=== PATIENT | female | born 1940 | race Caucasian/White ===

== ENCOUNTER → 2017-02-10 | Outpatient (CLI) | payer MEDICARE, OTHER ==
--- NOTE | 2017-02-10 17:58 | WOMENS IMAGING REPORT ---
EXAM DESCRIPTION: 3D SCREENING MAMMO BILAT COMPLETED DATE/TIME: 02/10/2017 2:20 pm REASON FOR STUDY: ROUTINE SCREENING; Z12.31 Z12.31 ENCNTR SCREEN MAMMOGRAM FOR MALIGNANT NEOPLASM O F AAMIR COMPARISON: Multiple since 2009 TECHNIQUE: Standard craniocaudal and mediolateral oblique views of each breast recorded using digita l acquisition and breast tomosynthesis. LIMITATIONS: None. FINDINGS: RIGHT BREAST MASSES: No suspicious masses. CALCIFICATIONS: No new or suspicious calcifications. ARCHITECTURAL DISTORTION: None. DEVELOPING DENSITY: None. ASYMMETRY: None noted. OTHER: No other significant findings. LEFT BREAST MASSES: Question small subcentimeter nodule with associated microcalcifications left breast upper out er quadrant 5 cm from the nipple, for which cone compression views, left breast 90 mediolateral view , and ultrasound is recommended for followup. CALCIFICATIONS: Nodule with microcalcifications as above ARCHITECTURAL DISTORTION: None. DEVELOPING DENSITY: None. ASYMMETRY: None noted. OTHER: No other significant findings. Read with the assistance of CAD. .[facility] - R2 Cenova Version 1.3 .[facility] Imaging - R2 Cenova Version 1.3 .[facility] Imaging - R2 Cenova Version 2.4 .[facility] [place] - R2 Cenova Version 2.4 .[facility] - R2 Wafer Fab Technician Version 9.2 IMPRESSION: No mammographic evidence for malignancy right breast. Question nodule with microcalcifications, upper-outer quadrant 5 cm from the nipple for which additio nal left breast diagnostic mammograms and ultrasound recommended. BREAST DENSITY: b. There are scattered areas of fibroglandular density. BIRAD: 0 Incomplete: Needs Additional Imaging Evaluation and/or prior Mammograms for Comparison. RECOMMENDATION: RECOMMENDED FOLLOW-UP: Additional left breast diagnostic mammograms and ultrasound The patient will be contacted for additional imaging. COMMENT: The patient has been notified of the results by letter per SA requirements. Additional no tification policies are in place for contacting patient with suspicious or incomplete findings. Quality ID #[id number]: The [employer] recommends an annual screening mammogram for women aged 40 years or over. This facility utilizes a reminder system to ensure that all patients receive reminder letters, and/or direct phone calls for appointments. This includes reminders for routine scr eening mammograms, diagnostic mammograms, or other Breast Imaging Interventions when appropriate. Th is patient will be placed in the appropriate reminder system. The [employer] (ACR) has developed recommendations for screening MRI of the breast s in certain patient populations, to be used in conjunction with mammography. Breast MRI surveillanc e may be appropriate for women with more than 20% lifetime risk of developing breast cancer as deter mined by genetic testing, significant family history of the disease, or history of mantle radiation f or Hodgkins Disease. ACR Practice Guidelines 2008. DBT Technology DBT is a type of tomographic mammography. With conventional mammography, overlapping breast tissue ma y make lesions difficult to detect, even with good compression. DBT uses an x-ray tube that rotates a round the breast, taking images at different angles. These images are then combined to create thin sl ices of the breast that the radiologist can view as a 3D reconstruction. The [employer] unit can perform full-field digital mammograms (2D imaging); or DBT (3D imaging); or both, in a combination mode that quickly performs both the mammogram and the tomosynthesis scan while the breast is still compressed. PQRS 6045F: Fluoroscopic imaging is not utilized for breast tomosynthesis. TECHNICAL DOCUMENTATION: FINDING NUMBER: (1) ASSESSMENT: (1) JOB ID: [id number] [employer]- All Rights Reserved
== END ==
LOC: WI 13:59
PROVIDERS: ATTEND Internal Medicine
DX: Z12.31 Encounter for screening mammogram for malignant neoplasm of breast (principal); R92.8 Other abnormal and inconclusive findings on diagnostic imaging of breast
CPT/HCPCS: 77063; G0202; 76642; 77067

== ENCOUNTER → 2017-03-03 | Outpatient (CLI) | payer MEDICARE, OTHER ==
--- NOTE | 2017-03-03 16:08 | WOMENS IMAGING REPORT ---
EXAM DESCRIPTION: LEFT DIAGNOSTIC MAMMO W/CAD; U/S BREAST UNILAT LIMITED COMPLETED DATE/TIME: 03/03/2017 1:10 pm; 03/03/2017 2:07 pm REASON FOR STUDY: N63, BREAST LUMP; LEFT BREAST NODULE N63 UNSPECIFIED LUMP IN BREAST; Z12.31 ENCN TR SCREEN MAMMOGRAM FOR MALIGNANT NEOPLASM OF AAMIR R92.8 OTH ABN AND INCONCLUSIVE FINDINGS ON DX IMAG ING OF AAMIR COMPARISON: 02/10/2017, 03/02/2016, and 01/17/2015. TECHNIQUE: Additional images include a true lateral view and compression magnification MLO and CC vi ews. LIMITATIONS: None. FINDINGS: BREAST: left MASSES: No suspicious masses. CALCIFICATIONS: A few coarse calcifications in the upper-outer breast with no suspicious pleomorphic characteristics. Associated with vague density with no discrete mass on additional views. ARCHITECTURAL DISTORTION: None. DEVELOPING DENSITY: None. ASYMMETRY: None noted. OTHER: No other significant findings. BREAST ULTRASOUND: TECHNIQUE: Static and dynamic grayscale images acquired of the left breast in the specific areas of c linical/mammographic concern. Selected color Doppler images recorded. ELASTOGRAPHY PERFORMED: No. LIMITATIONS: None. FINDINGS: MASS: In the 1 o'clock location there is an oval hypoechoic mass measuring 3 x 7 x 8 mm. This is wel l-circumscribed and may consistent of tiny cysts. There are a few central calcifications. No distal shadowing. ELASTOGRAPHY CHARACTERISTICS: Not applicable. OTHER: No other significant finding. IMPRESSION: Calcifications in the upper-outer breast with no suspicious pleomorphic appearance. Sma ll nodule on ultrasound which may be composed of tiny cysts. No worrisome characteristics. BREAST DENSITY: b. There are scattered areas of fibroglandular density. BIRAD: 2 Benign findings. RECOMMENDATION: RECOMMENDED FOLLOW UP: Birads 1 or 2: The patient should resume routine screening . SPECIFIC INTERVENTION/IMAGING/CONSULTATION RECOMMENDED:No additional intervention/ imaging/consultati on needed at this time. COMMUNICATION:The imaging findings were not discussed with the patient. Her referring provider will b e notified of the findings. COMMENT: The patient has been notified of the results by letter per MQSA requirements. Additional no tification policies are in place for contacting patient with suspicious or incomplete findings. Quality ID #[id number]: The [employer] recommends an annual screening mammogram for women aged 40 years or over. This facility utilizes a reminder system to ensure that all patients receive reminder letters, and/or direct phone calls for appointments. This includes reminders for routine scr eening mammograms, diagnostic mammograms, or other Breast Imaging Interventions when appropriate. Th is patient will be placed in the appropriate reminder system. The [employer] (ACR) has developed recommendations for screening MRI of the breast s in certain patient populations, to be used in conjunction with mammography. Breast MRI surveillanc e may be appropriate for women with more than 20% lifetime risk of developing breast cancer as deter mined by genetic testing, significant family history of the disease, or history of mantle radiation f or Hodgkins Disease. ACR Practice Guidelines 2008. TECHNICAL DOCUMENTATION: FINDING NUMBER: (1) ASSESSMENT: (1) JOB ID: [id number] [employer]- All Rights Reserved
--- NOTE | 2017-03-03 16:08 | WOMENS IMAGING REPORT ---
EXAM DESCRIPTION: LEFT DIAGNOSTIC MAMMO W/CAD; U/S BREAST UNILAT LIMITED COMPLETED DATE/TIME: 03/03/2017 1:10 pm; 03/03/2017 2:07 pm REASON FOR STUDY: N63, BREAST LUMP; LEFT BREAST NODULE N63 UNSPECIFIED LUMP IN BREAST; Z12.31 ENCNTR SCREEN MAMMOGRAM FOR MALIGNANT NEOPLASM OF AAMIR R92.8 OTH ABN AND INCONCLUSIVE FINDINGS ON DX IMAGING OF AAMIR COMPARISON: 02/10/2017, 03/02/2016, and 01/17/2015. TECHNIQUE: Additional images include a true lateral view and compression magnification MLO and CC views. LIMITATIONS: None. FINDINGS: BREAST: left MASSES: No suspicious masses. CALCIFICATIONS: A few coarse calcifications in the upper-outer breast with no suspicious pleomorphic characteristics. Associated with vague density with no discrete mass on additional views. ARCHITECTURAL DISTORTION: None. DEVELOPING DENSITY: None. ASYMMETRY: None noted. OTHER: No other significant findings. BREAST ULTRASOUND: TECHNIQUE: Static and dynamic grayscale images acquired of the left breast in the specific areas of clinical/mammographic concern. Selected color Doppler images recorded. ELASTOGRAPHY PERFORMED: No. LIMITATIONS: None. FINDINGS: MASS: In the 1 o'clock location there is an oval hypoechoic mass measuring 3 x 7 x 8 mm. This is well-circumscribed and may consistent of tiny cysts. There are a few central calcifications. No distal shadowing. ELASTOGRAPHY CHARACTERISTICS: Not applicable. OTHER: No other significant finding. IMPRESSION: Calcifications in the upper-outer breast with no suspicious pleomorphic appearance. Small nodule on ultrasound which may be composed of tiny cysts. No worrisome characteristics. BREAST DENSITY: b. There are scattered areas of fibroglandular density. BIRAD: 2 Benign findings. RECOMMENDATION: RECOMMENDED FOLLOW UP: Birads 1 or 2: The patient should resume routine screening . SPECIFIC INTERVENTION/IMAGING/CONSULTATION RECOMMENDED:No additional intervention/ imaging/consultation needed at this time. COMMUNICATION:The imaging findings were not discussed with the patient. Her referring provider will be notified of the findings. COMMENT: The patient has been notified of the results by letter per MQSA requirements. Additional notification policies are in place for contacting patient with suspicious or incomplete findings. Quality ID #[id number]: The [employer] recommends an annual screening mammogram for women aged 40 years or over. This facility utilizes a reminder system to ensure that all patients receive reminder letters, and/or direct phone calls for appointments. This includes reminders for routine screening mammograms, diagnostic mammograms, or other Breast Imaging Interventions when appropriate. This patient will be placed in the appropriate reminder system. The [employer] (ACR) has developed recommendations for screening MRI of the breasts in certain patient populations, to be used in conjunction with mammography. Breast MRI surveillance may be appropriate for women with more than 20% lifetime risk of developing breast cancer as determined by genetic testing, significant family history of the disease, or history of mantle radiation for Hodgkins Disease. ACR Practice Guidelines 2008. TECHNICAL DOCUMENTATION: FINDING NUMBER: (1) ASSESSMENT: (1) JOB ID: [id number] [employer]- All Rights Reserved <Electronically signed by MATT LIN MD in [place]> 03/03/17 1608 [email or web address]
== END ==
LOC: WI 12:58
PROVIDERS: ATTEND Internal Medicine
DX: N63 Unspecified lump in breast (principal)
CPT/HCPCS: 76642; G0206-52

== ENCOUNTER → 2017-12-31 | Outpatient (CLI) | payer MEDICARE ==
--- NOTE | 2017-12-31 14:36 | WOMENS IMAGING REPORT ---
EXAM DESCRIPTION: BONE DENSITY HIP/SPINE COMPLETED DATE/TIME: 12/31/2017 2:25 pm REASON FOR STUDY: OSTEOPOROSIS Z13.820 ENCOUNTER FOR SCREENING FOR OSTEOPOROSIS M81.0 AGE-RELATED OSTEOPOROSIS W/O CURRENT PATHOLOGICAL FRAC COMPARISON: None. TECHNIQUE: Dual-Energy X-ray Absorptiometry (DEXA) of the AP Spine and Hip. LIMITATIONS: None. FINDINGS: LUMBAR SPINE: The bone mineral density (BMD) measured from L1-L4 in the AP projection correlates with a T-score of -1.1, which is osteopenia as defined by the World Health Organization. HIP: The bone mineral density (BMD) measured in the left hip correlates with a T-score of -1.5, which is o steopenia as defined by the World Health Organization. IMPRESSION: 1. LUMBAR SPINE: OSTEOPENIA. 2. HIP: OSTEOPENIA. COMMENT: The World Health Organization defines low BMD as follows: T-score: Normal: Greater than -1.0 Osteopenia: Between -1.0 and -2.5 Osteoporosis: Less than -2.5 without fractures Established osteoporosis: Less than -2.5 with fractures In general, you may wish to consider: Diagnosis Treatment Follow-up DEXA Normal BMD Prevention 2-3 years Osteopenia Prevention/Therapy 1-2 years Osteoporosis Therapy Yearly TECHNICAL DOCUMENTATION: JOB ID: [id number] [employer]- All Rights Reserved Reading location - IP/workstation name: [email or web address]
== END ==
LOC: WI 14:07
PROVIDERS: ATTEND Internal Medicine
DX: M81.0 Age-related osteoporosis without current pathological fracture (principal)
CPT/HCPCS: 77080

== ENCOUNTER → 2018-05-31 | Outpatient (CLI) | payer MEDICARE, OTHER ==
--- NOTE | 2018-06-01 15:02 | WOMENS IMAGING REPORT ---
EXAM DESCRIPTION: 3D SCREENING MAMMO BILAT COMPLETED DATE/TIME: 05/31/2018 3:10 pm REASON FOR STUDY: BILATERAL SCREENING MAMMO 3D/Z12.31 Z12.31 ENCNTR SCREEN MAMMOGRAM FOR MALIGNANT NEOPLASM OF AAMIR COMPARISON: 2013 to 2016 TECHNIQUE: Standard craniocaudal and mediolateral oblique views of each breast recorded using digita l acquisition and breast tomosynthesis. LIMITATIONS: None. FINDINGS: No masses, calcifications or architectural distortion. No areas of suspicion. Read with the assistance of CAD. .[facility] - R2 Cenova Version 1.3 .[facility] Imaging - R2 Cenova Version 1.3 .[facility] Imaging - R2 Cenova Version 2.4 .[facility] - R2 Cenova Version 2.4 .[facility] - R2 Vertical Boring Mill Operator Version 9.2 IMPRESSION: NORMAL MAMMOGRAM. BIRADS 1. BREAST DENSITY: b. There are scattered areas of fibroglandular density. BIRAD: 1 NEGATIVE RECOMMENDATION: ROUTINE SCREENING COMMENT: The patient has been notified of the results by letter per SA requirements. Additional no tification policies are in place for contacting patient with suspicious or incomplete findings. Quality ID #[id number]: The [employer] recommends an annual screening mammogram for women aged 40 years or over. This facility utilizes a reminder system to ensure that all patients receive reminder letters, and/or direct phone calls for appointments. This includes reminders for routine scr eening mammograms, diagnostic mammograms, or other Breast Imaging Interventions when appropriate. Th is patient will be placed in the appropriate reminder system. The [employer] (ACR) has developed recommendations for screening MRI of the breast s in certain patient populations, to be used in conjunction with mammography. Breast MRI surveillanc e may be appropriate for women with more than 20% lifetime risk of developing breast cancer as deter mined by genetic testing, significant family history of the disease, or history of mantle radiation f or Hodgkins Disease. ACR Practice Guidelines 2008. DBT Technology DBT is a type of tomographic mammography. With conventional mammography, overlapping breast tissue ma y make lesions difficult to detect, even with good compression. DBT uses an x-ray tube that rotates a round the breast, taking images at different angles. These images are then combined to create thin sl ices of the breast that the radiologist can view as a 3D reconstruction. The [employer] unit can perform full-field digital mammograms (2D imaging); or DBT (3D imaging); or both, in a combination mode that quickly performs both the mammogram and the tomosynthesis scan while the breast is still compressed. PQRS 6045F: Fluoroscopic imaging is not utilized for breast tomosynthesis. TECHNICAL DOCUMENTATION: FINDING NUMBER: (1) ASSESSMENT: (1) JOB ID: [id number] [employer]- All Rights Reserved Reading location - IP/workstation name: [email or web address]
== END ==
LOC: WI 14:42
PROVIDERS: ATTEND Internal Medicine
DX: Z12.31 Encounter for screening mammogram for malignant neoplasm of breast (principal)
CPT/HCPCS: 77063; 77067

== ENCOUNTER 2018-12-01 19:10 | Emergency (ER) | payer MEDICARE, OTHER ==
--- NOTE | 2018-12-01 20:23 | ER Document Report ---
ED Medical Screen (RME) - General Chief Complaint: Cough Stated Complaint: BAD COUGH Time Seen by Provider: 12/01/18 20:17 Primary Care Provider: JAMIE ARITA MD [Primary Care Provider] - Follow up as needed Notes: Patient is a 78-year-old female presents to the emergency department for generalized cough and congestion since Wednesday. Patient states at times she coughs so hard that she makes herself vomit. Patient states she also has generalized bilateral lower rib pain more so when she takes a deep breath or coughs. Patient's denying any fevers. GENERAL: Alert, interacts well. No acute distress. LUNGS: Clear to auscultation bilaterally, no wheezes, rales, or rhonchi. No respiratory distress. HEART: Regular rate and rhythm. No murmur I have greeted and performed a rapid initial assessment of this patient. A comprehensive ED assessment and evaluation of the patient, analysis of test results and completion of the medical decision making process will be conducted by additional ED providers. This medical record was dictated with voice recognizing software. There may be grammatical, syntax errors that are unintended. TRAVEL OUTSIDE OF THE [place] IN LAST 30 DAYS: No - Related Data Allergies/Adverse Reactions: chocolate flavor Allergy (Mild, Verified 06/04/17 20:53) Hives oxycodone [From Percocet] Allergy (Mild, Verified 06/04/17 20:53) Chest pain tomato Allergy (Mild, Verified 06/04/17 20:53) Hives acetaminophen [From Percocet] Allergy (Verified 06/04/17 20:51) pcn Allergy (Mild, Uncoded 06/04/17 13:38) Past Medical History - Past Medical History Cardiac Medical History: Reports: Hx Hypercholesterolemia, Hx Hypertension Endocrine Medical History: Reports: Hx Diabetes Mellitus Type 2 Renal/ Medical History: Denies: Hx Peritoneal Dialysis GI Medical History: Reports: Hx Gastroesophageal Reflux Disease Musculoskeltal Medical History: Reports Hx Gout Past Surgical History: Reports: Hx Cholecystectomy - Immunizations Hx Diphtheria, Pertussis, Tetanus Vaccination: Yes History of Influenza Vaccine for 05/2017 - 10/2017 Season: Refused Physical Exam - Vital signs Vitals: Temp Pulse Resp BP Pulse Ox 97.8 F 76 16 158/67 H 94 12/01/18 19:16 12/01/18 19:16 12/01/18 19:16 12/01/18 19:16 12/01/18 19:16 Course - Vital Signs Vital signs: Temp Pulse Resp BP Pulse Ox 97.8 F 76 16 158/67 H 94 12/01/18 19:16 12/01/18 19:16 12/01/18 19:16 12/01/18 19:16 12/01/18 19:16 Doctor's Discharge - Discharge Referrals: JAMIE ARITA MD [Primary Care Provider] - Follow up as needed
--- NOTE | 2018-12-01 20:53 | RADIOLOGY REPORT (SQ) ---
EXAM DESCRIPTION: XR CHEST 2 VIEWS COMPLETED DATE/TME: 12/01/2018 20:21 CLINICAL HISTORY: 78 years, Female, cough Compared to 06/04/2017. FINDINGS: The heart is mildly enlarged. Aorta is within normal limits. No consolidation or pleural effusion. No pulmonary edema or pneumothorax. IMPRESSION: No acute disease.
[2018-12-01] MEDS ORDERED: BENZONATATE 100 MG CAPSULE PO ONE (23:48)
--- NOTE | 2018-12-01 23:49 | ER Document Report ---
ED General - General Chief Complaint: Cough Stated Complaint: BAD COUGH Time Seen by Provider: 12/01/18 20:17 Primary Care Provider: JAMIE ARITA MD [Primary Care Provider] - Follow up as needed Notes: Patient is a 78-year-old female with a past medical history of diabetes, presents complaining of 2 days of persistent cough. States that symptoms started gradually, have been worsening its onset, regards him as being severe. She states that sometimes her coughing is so severe that it does cause her to feel very short of breath that she has even had one episode of posttussive emesis. She denies any current shortness of breath. Denies any chest pain, abdominal pain, nausea or vomiting. She is very clear to state that the episode of posttussive emesis was the only episode of vomiting that she had and it was after she had been coughing vigorously. She has a history of bronchitis and states this feels the same. No history of COPD or asthma. Has not tried nothing to improve her symptoms. No obvious exacerbating factors. No fever or constitutional symptoms. Has not seen her primary care physician regarding today's concerns. TRAVEL OUTSIDE OF THE [place] IN LAST 30 DAYS: No - Related Data Allergies/Adverse Reactions: chocolate flavor Allergy (Mild, Verified 06/04/17 20:53) Hives oxycodone [From Percocet] Allergy (Mild, Verified 06/04/17 20:53) Chest pain tomato Allergy (Mild, Verified 06/04/17 20:53) Hives acetaminophen [From Percocet] Allergy (Verified 06/04/17 20:51) pcn Allergy (Mild, Uncoded 06/04/17 13:38) Past Medical History - General Information source: Patient - Social History Smoking Status: Never Smoker Frequency of alcohol use: None Drug Abuse: None Lives with: Family Family History: Reviewed & Not Pertinent Patient has suicidal ideation: No Patient has homicidal ideation: No - Past Medical History Cardiac Medical History: Reports: Hx Hypercholesterolemia, Hx Hypertension Pulmonary Medical History: Reports: Hx Bronchitis, Hx Pneumonia Endocrine Medical History: Reports: Hx Diabetes Mellitus Type 2 Renal/ Medical History: Denies: Hx Peritoneal Dialysis GI Medical History: Reports: Hx Gastroesophageal Reflux Disease Musculoskeletal Medical History: Reports Hx Gout Past Surgical History: Reports: Hx Cholecystectomy - Immunizations Hx Diphtheria, Pertussis, Tetanus Vaccination: Yes Review of Systems - Review of Systems Notes: Constitutional: Negative for fever. HENT: Negative for sore throat. Eyes: Negative for visual changes. Cardiovascular: Negative for chest pain. Respiratory: Negative for shortness of breath. Positive for cough Gastrointestinal: Negative for abdominal pain, vomiting or diarrhea. Genitourinary: Negative for dysuria. Musculoskeletal: Negative for back pain. Skin: Negative for rash. Neurological: Negative for headaches, weakness or numbness. 10 point ROS negative except as marked above and in HPI. Physical Exam - Vital signs Vitals: Temp Pulse Resp BP Pulse Ox 97.8 F 76 16 158/67 H 94 12/01/18 19:16 12/01/18 19:16 12/01/18 19:16 12/01/18 19:16 12/01/18 19:16 Interpretation: Hypertensive Notes: PHYSICAL EXAMINATION: GENERAL: Well-appearing, well-nourished and in no acute distress. HEAD: Atraumatic, normocephalic. EYES: Pupils equal round and reactive to light, extraocular movements intact, sclera anicteric, conjunctiva are normal. ENT: nares patent, oropharynx clear without exudates. Moist mucous membranes. NECK: Normal range of motion, supple without lymphadenopathy LUNGS: Breath sounds clear to auscultation bilaterally and equal. No wheezes rales or rhonchi. HEART: Regular rate and rhythm without murmurs ABDOMEN: Soft, nontender, normoactive bowel sounds. No guarding, no rebound. No masses appreciated. EXTREMITIES: Normal range of motion, no pitting or edema. No cyanosis. NEUROLOGICAL: No focal neurological deficits. Moves all extremities spontaneously and on command. PSYCH: Normal mood, normal affect. SKIN: Warm, Dry, normal turgor, no rashes or lesions noted. Course - Re-evaluation Re-evalutation: 12/01/18 23:48 Patient presents with a clinical history and exam most consistent with an acute viral bronchitis. Patient is overall well in appearance without tachypnea, hypoxemia, tachycardia, or difficulty with ambulation. Breath sounds are clear bilaterally. No fever. Patient does have additional signs of upper respiratory infection including nasal congestion, sore throat, and sinus pressure. Tested without evidence of acute underlying pneumonia. Patient has declined bronchodilators, steroids. At this time will discharge with return precautions and follow-up recommendations. Verbal discharge instructions given a the bedside and opportunity for questions given. Medication warnings reviewed. Patient is in agreement with this plan and has verbalized understanding of return precautions and the need for primary care follow-up in the next 24-72 hours. - Vital Signs Vital signs: Temp Pulse Resp BP Pulse Ox 97.7 F 79 18 177/75 H 94 12/02/18 00:03 12/02/18 00:03 12/02/18 00:03 12/02/18 00:03 12/02/18 00:03 - Diagnostic Test Radiology reviewed: Image reviewed, Reports reviewed Radiology results interpreted by me: 12/01/18 23:49 Chest x-ray: No acute infiltrate or pneumothorax Discharge - Discharge Clinical Impression: Persistent cough, Bronchitis Condition: Good Disposition: HOME, SELF-CARE Additional Instructions: You were seen for symptoms most consistent with bronchitis. This can take up to 12 weeks to fully resolve. This is generally due to a viral infection. Please follow-up with your primary doctor in the next 2-3 days. Return if you develop worsening cough, vomiting, fever >100.4, pass out, begin coughing blood, or have any other symptoms that are concerning to you. Please use the medications prescribed today as directed. Prescriptions: Benzonatate [Tessalon Perles 100 mg Capsule] 100 mg PO Q8HP PRN #40 capsule PRN Reason: Referrals: JAMIE ARITA MD [Primary Care Provider] - Follow up as needed
[2018-12-02 00:04] VITALS: BP 177/75
== END 2018-12-02 00:04 | disposition home or self-care (01) ==
LOC: ER 19:10
DX: J40 Bronchitis, not specified as acute or chronic (principal); R05 Cough; R09.81 Nasal congestion; J02.9 Acute pharyngitis, unspecified; J34.89 Other specified disorders of nose and nasal sinuses; E11.9 Type 2 diabetes mellitus without complications; I10 Essential (primary) hypertension; Z91.018 Allergy to other foods; Z88.5 Allergy status to narcotic agent; Z88.6 Allergy status to analgesic agent; Z88.0 Allergy status to penicillin
CPT/HCPCS: 99283; 71046; A9270

== ENCOUNTER → 2019-05-10 | Outpatient (CLI) | payer MEDICARE, OTHER ==
--- NOTE | 2019-05-11 13:20 | WOMENS IMAGING REPORT ---
EXAM DESCRIPTION: 3D SCREENING MAMMO BILAT COMPLETED DATE/TIME: 05/10/2019 4:15 pm REASON FOR STUDY: Z12.31 SCREENING MAMMO Z12.31 ENCNTR SCREEN MAMMOGRAM FOR MALIGNANT NEOPLASM OF B RE COMPARISON: Multiple since 2009 EXAM PARAMETERS: Standard craniocaudal and mediolateral oblique views of each breast recorded using digital acquisition and breast tomosynthesis. Read with the assistance of CAD. .[facility] - R2 Needle Punch Machine Operator Version 9.2 LIMITATIONS: None. FINDINGS: Findings present which are benign by mammographic criteria. No suspicious masses, calcific ations or architectural distortion. Pertinent benign findings: Benign bilateral breast parenchymal and vascular calcifications. Benign mammographic findings may include one or more of the following: Smooth masses, popcorn/rim/coa rse calcifications, asymmetries, post-procedure changes, and lesions with long-standing stability. IMPRESSION: BENIGN MAMMOGRAPHIC FINDINGS. BIRADS 2 BREAST DENSITY: a. The breasts are almost entirely fatty. BIRAD: ASSESSMENT: 2 BENIGN FINDING(S) RECOMMENDATION: ROUTINE SCREENING Please continue yearly bilateral screening mammography/tomosynthesis in May 2020 COMMENT: The patient has been notified of the results by letter per [place] requirements. Additional no tification policies are in place for contacting patient with suspicious or incomplete findings. Quality ID #[id number]: The [employer] recommends an annual screening mammogram for women aged 40 years or over. This facility utilizes a reminder system to ensure that all patients receive reminder letters, and/or direct phone calls for appointments. This includes reminders for routine scr eening mammograms, diagnostic mammograms, or other Breast Imaging Interventions when appropriate. Th is patient will be placed in the appropriate reminder system. TECHNICAL DOCUMENTATION: FINDING NUMBER: (1) ASSESSMENT: (1) JOB ID: [id number] [employer]- All Rights Reserved Reading location - IP/workstation name: [email or web address]-
== END ==
LOC: WI 15:40
PROVIDERS: ATTEND Internal Medicine
DX: Z12.31 Encounter for screening mammogram for malignant neoplasm of breast (principal)
CPT/HCPCS: 77063; 77067

== ENCOUNTER 2019-10-06 14:05 | Inpatient (IN) | payer MEDICARE, OTHER ==
[2019-10-06] MEDS ORDERED: METHYLPREDNISOLONE INJ 125 MG/2 ML SDV ONE (14:08)
[2019-10-06] MEDS ORDERED: IPRATROPIUM/ALBUTEROL 0.5-2.5 MG/3 ML AMPUL NEB ONE (14:08)
[2019-10-06] MEDS ORDERED: RACEPINEPHRINE HCL 2.25% NEB 0.5 ML AMPUL NEB ONE (14:10)
[2019-10-06] MEDS: MAGNESIUM SULFATE/D5W 1 GM/100 ML RTUPB IV SCH ×2 (14:17→15:17)
[2019-10-06] MEDS ORDERED: MAGNESIUM SULFATE/D5W 2 GM/200 ML RTUPB IV ONE (14:17)
[2019-10-06] MEDS ORDERED: MORPHINE SULFATE 10 MG/ML INJ IV ONE (14:18)
[2019-10-06] MEDS ORDERED: ONDANSETRON HCL INJ/PF 4 MG/2 ML SDV IV ONE (14:20)
--- NOTE | 2019-10-06 14:21 | ER Document Report ---
ED Medical Screen (RME) - General Chief Complaint: Breathing Difficulty Stated Complaint: DIFFICULTY BREATHING Time Seen by Provider: 10/06/19 14:18 Primary Care Provider: JAMIE ARITA MD [Primary Care Provider] - Follow up as needed TRAVEL OUTSIDE OF THE [place] IN LAST 30 DAYS: No - HPI Notes: 10/06/19 14:19 I was called out front to evaluate the 79-year-old female in respiratory distress. I immediately saw that she was having dyspnea, trouble speaking, possible audible stridor and immediately wheeled her to the trauma bay for respiratory distress. We initiated labs, imaging, EKG, and medications. We immediately placed her on a DuoNeb and provided Solu-Medrol. Pt was placed on monitor. I was able to notify Dr. holder who came and evaluated the patient at bedside as well and assume care at this point. Racemic epinephrine, magnesium, morphine also verbally ordered. - Related Data Allergies/Adverse Reactions: chocolate flavor Allergy (Mild, Verified 06/04/17 20:53) Hives oxycodone [From Percocet] Allergy (Mild, Verified 06/04/17 20:53) Chest pain tomato Allergy (Mild, Verified 06/04/17 20:53) Hives acetaminophen [From Percocet] Allergy (Verified 06/04/17 20:51) pcn Allergy (Mild, Uncoded 06/04/17 13:38) Past Medical History - Past Medical History Cardiac Medical History: Reports: Hx Hypercholesterolemia, Hx Hypertension Pulmonary Medical History: Reports: Hx Bronchitis, Hx Pneumonia Endocrine Medical History: Reports: Hx Diabetes Mellitus Type 2 Renal/ Medical History: Denies: Hx Peritoneal Dialysis GI Medical History: Reports: Hx Gastroesophageal Reflux Disease Musculoskeltal Medical History: Reports Hx Gout Past Surgical History: Reports: Hx Cholecystectomy - Immunizations Hx Diphtheria, Pertussis, Tetanus Vaccination: Yes Doctor's Discharge - Discharge Referrals: JAMIE ARITA MD [Primary Care Provider] - Follow up as needed
--- NOTE | 2019-10-06 14:40 | RADIOLOGY REPORT (SQ) ---
EXAM DESCRIPTION: CHEST SINGLE VIEW COMPLETED DATE/TIME: 10/06/2019 2:31 pm REASON FOR STUDY: SOB COMPARISON: 12/01/2018 EXAM PARAMETERS: NUMBER OF VIEWS: One view. TECHNIQUE: Single frontal radiographic view of the chest acquired. RADIATION DOSE: NA LIMITATIONS: None. FINDINGS: LUNGS AND PLEURA: No opacities, masses or pneumothorax. No pleural effusion. MEDIASTINUM AND HILAR STRUCTURES: No masses. Contour normal. HEART AND VASCULAR STRUCTURES: Heart normal in size. Normal vasculature. BONES: No acute findings. HARDWARE: Cholecystectomy clips. OTHER: No other significant finding. IMPRESSION: NO ACUTE RADIOGRAPHIC FINDING IN THE CHEST. TECHNICAL DOCUMENTATION: JOB ID: [id number] 2010 [employer]- All Rights Reserved Reading location - IP/workstation name: [email or web address]
[2019-10-06 15:31] LABS: ABSOLUTE BASOPHILS # (AUTO) 0.1 10^3/uL (0.0-0.2); ABSOLUTE EOSINOPHILS # (AUTO) 0.4 10^3/uL (0.0-0.6); ABSOLUTE MONOCYTES (AUTO) 0.9 10^3/uL (0.1-1.4); BASOPHILS % (AUTO) 0.5 % (0-2); EOSINOPHILS % (AUTO) 2.6 % (0-6); HEMATOCRIT 37.6 % (36.0-47.0); HEMOGLOBIN 12.7 g/dL (12.0-15.5); LYMPHOCYTES % (AUTO) 28.2 % (13-45); MEAN CORPUSCULAR HEMOGLOBIN 30.5 pg (27.0-33.4); MEAN CORPUSCULAR HGB CONC 33.7 g/dL (32.0-36.0); MEAN CORPUSCULAR VOLUME 91 fl (80-97); MONOCYTES % (AUTO) 6.3 % (3-13); PLATELET COUNT 271 10^3/uL (150-450); RED BLOOD COUNT 4.16 10^6/uL (3.72-5.28); SEGMENTED NEUTROPHILS % (AUTO) 62.4 % (42-78); TOTAL CELLS COUNTED % (AUTO) 100 %; WHITE BLOOD COUNT 14.4 10^3/uL (4.0-10.5)
[2019-10-06 15:41] LABS: ALBUMIN 4.6 g/dL (3.5-5.0); ALKALINE PHOSPHATASE 84 U/L (38-126); ANION GAP 9 (5-19); ASPARTATE AMINO TRANSFERASE 25 U/L (14-36); BILIRUBIN,DIRECT 0.3 mg/dL (0.0-0.4); BILIRUBIN,TOTAL 0.6 mg/dL (0.2-1.3); BLOOD UREA NITROGEN 22 mg/dL (7-20); CALCIUM 10.5 mg/dL (8.4-10.2); CARBON DIOXIDE 29 mmol/L (22-30); CHLORIDE 101 mmol/L (98-107); GLUCOSE 190 mg/dL (75-110); POTASSIUM 3.4 mmol/L (3.6-5.0)
[2019-10-06 15:42] LABS: TOTAL PROTEIN 7.8 g/dL (6.3-8.2)
--- NOTE | 2019-10-06 15:44 | ER Document Report ---
ED General - General Chief Complaint: Breathing Difficulty Stated Complaint: DIFFICULTY BREATHING Time Seen by Provider: 10/06/19 14:18 Primary Care Provider: JAMIE ARITA MD [Primary Care Provider] - Follow up as needed Mode of Arrival: Wheelchair Information source: Patient Notes: per VIJAY Valverde.. was called out front to evaluate the 79-year-old female in respiratory distress and immediately saw that she was having dyspnea, trouble speaking, possible audible stridor and immediately wheeled her to the trauma bay for respiratory distress. We initiated labs, imaging, EKG, and medications. We immediately placed her on a DuoNeb and provided Solu-Medrol. Pt was placed on monitor. I was able to notify Dr. holder who came and evaluated the patient at bedside as well and assume care at this point. Racemic epinephrine, magnesium, morphine also verbally ordered. Patient reports she has never smoked in her life but did live with her who smoked his entire life. She reports her sister had a bronchitis cold last week which was quite severe. Her sister did not go to the hospital or to her doctors and treated herself with [id number] medications. TRAVEL OUTSIDE OF THE [place] IN LAST 30 DAYS: No - HPI Onset: Just prior to arrival Onset/Duration: Sudden Quality of pain: Fullness Severity: Severe Pain Level: 3 - Severe respiratory distress with tachypnea tripoding accessory musculature use and pursed lip breathing Associated symptoms: Hurts to breath, Shortness of breath, Weakness Exacerbated by: Coughing, Deep breathing Relieved by: Denies Similar symptoms previously: Yes Recently seen / treated by doctor: No - Related Data Allergies/Adverse Reactions: chocolate flavor Allergy (Mild, Verified 06/04/17 20:53) Hives oxycodone [From Percocet] Allergy (Mild, Verified 06/04/17 20:53) Chest pain tomato Allergy (Mild, Verified 06/04/17 20:53) Hives acetaminophen [From Percocet] Allergy (Verified 06/04/17 20:51) pcn Allergy (Mild, Uncoded 06/04/17 13:38) Past Medical History - General Information source: Patient - 0-1 word verbalizations - Social History Smoking Status: Never Smoker Cigarette use (# per day): No Chew tobacco use (# tins/day): No Smoking Education Provided: No Frequency of alcohol use: None Drug Abuse: None Lives with: Family Family History: Reviewed & Not Pertinent Patient has suicidal ideation: No Patient has homicidal ideation: No - Past Medical History Cardiac Medical History: Reports: Hx Hypercholesterolemia, Hx Hypertension Pulmonary Medical History: Reports: Hx Bronchitis, Hx Pneumonia Endocrine Medical History: Reports: Hx Diabetes Mellitus Type 2 Renal/ Medical History: Denies: Hx Peritoneal Dialysis GI Medical History: Reports: Hx Gastroesophageal Reflux Disease Musculoskeletal Medical History: Reports Hx Gout Past Surgical History: Reports: Hx Cholecystectomy - Immunizations Hx Diphtheria, Pertussis, Tetanus Vaccination: Yes Review of Systems - Review of Systems Constitutional: See HPI, Malaise, Weakness, Recent illness EENT: See HPI, Nose congestion Cardiovascular: See HPI, Heart racing, Dizziness, Lightheaded Respiratory: See HPI, Cough, Hurts to breathe, Short of breath, Stridor, Wheezing Gastrointestinal: No symptoms reported Genitourinary: No symptoms reported Female Genitourinary: No symptoms reported Musculoskeletal: No symptoms reported Skin: No symptoms reported Hematologic/Lymphatic: No symptoms reported Neurological/Psychological: No symptoms reported Physical Exam - Vital signs Vitals: Resp BP Pulse Ox 28 H 155/91 H 99 10/06/19 14:11 10/06/19 14:11 10/06/19 14:11 Interpretation: Tachycardic, Tachypneic - General General appearance: Anxious In distress: Mild - HEENT Head: Normocephalic Eyes: Normal Conjunctiva: Normal Cornea: Normal Extraocular movements intact: Yes Eyelashes: Normal Pupils: PERRL Sinus: Normal Nasal: Normal Mouth/Lips: Normal Pharynx: Erythema Neck: Normal - Respiratory Respiratory status: Respiratory distress, Depressed respirations, Labored, Pursed lip breathing, Tachypnea, Tripod position Chest status: Nontender Breath sounds: Decreased air movement, Wheezing Chest palpation: Normal - Cardiovascular Rhythm: Tachycardia Heart sounds: Normal auscultation Murmur: No Friction rub: No Sammy's crunch: No - Abdominal Inspection: Normal Distension: No distension Bowel sounds: Normal Tenderness: Nontender Organomegaly: No organomegaly - Back Back: Normal - Extremities General upper extremity: Normal inspection General lower extremity: Normal inspection - Neurological Neuro grossly intact: Yes Cognition: Normal Orientation: AAOx4 Nayan Coma Scale Eye Opening: Spontaneous Nayan Coma Scale Verbal: Oriented Nayan Coma Scale Motor: Obeys Commands [place] Coma Scale Total: 15 Speech: Normal Cranial nerves: Normal Cerebellar coordination: Normal Motor strength normal: LUE, RUE, LLE, RLE - Psychological Associated symptoms: Anxious - Skin Skin Temperature: Warm Skin Moisture: Dry Course - Vital Signs Vital signs: Temp Pulse Resp BP Pulse Ox 18 146/62 H 96 10/06/19 15:01 10/06/19 15:01 10/06/19 15:27 - Laboratory Result Diagrams: 10/06/19 14:19 10/06/19 14:19 Laboratory results interpreted by me: 10/06/19 10/06/19 10/06/19 14:19 14:19 14:19 WBC 14.4 H RDW 16.0 H Absolute Neuts (auto) 9.0 H Potassium 3.4 L BUN 22 H Est GFR (MDRD) Non-Af 55 L Glucose 190 H Lactic Acid 2.3 H Calcium 10.5 H - EKG Interpretation by Me EKG shows normal: Sinus rhythm Rate: Tachycardia Rhythm: PVC's Critical Care Note - Critical Care Note Total time excluding time spent on procedures (mins): 90 Comments: This case was discussed with patient with the lab findings and chest x-ray findings and patient appeared to be an much improved state. Patient reports she has had runny nose and coughing phlegm up of different colors. Her sister was sick last week and she took [id number] medications for this. I discussed this case with Dr. Arita. At 1800 and he advised admission medical floor Discharge - Discharge Clinical Impression: Bronchitis, COPD exacerbation Dyspnea Qualifiers: Dyspnea type: unspecified Qualified Code(s): R06.00 - Dyspnea, unspecified Condition: Fair Disposition: ADMITTED INPATIENT Admitting Provider: Charan Unit Admitted: Medical Floor Referrals: JAMIE ARITA MD [Primary Care Provider] - Follow up as needed
[2019-10-06] MEDS ORDERED: LEVOFLOXACIN 750 MG/D5W RTU 750 MG/150 ML RTUPB IV ONE (15:57)
[2019-10-06 16:14] LABS: VENOUS BLOOD BASE EXCESS 0.3 mmol/L; VENOUS BLOOD HCO3 26.2 mmol/L (20-32); VENOUS BLOOD PCO2 47.1 mmHg (35-63); VENOUS BLOOD PH 7.36 (7.30-7.42)
[2019-10-06 18:02] LABS: A TYPE INFLUENZA AG NEGATIVE (NEGATIVE); B INFLUENZA AG NEGATIVE (NEGATIVE)
[2019-10-06] MEDS ORDERED: DEXTROSE 50%-WATER 25 GM/50 ML DISP.SYRIN IV PRN ×2 (22:18)
[2019-10-06] MEDS ORDERED: DEXTROSE 40% GEL 15 GM TUBE PO PRN ×2 (22:18)
[2019-10-06] MEDS ORDERED: GLUCAGON,HUMAN RECOMB 1 MG INJ IM PRN (22:18)
[2019-10-06] MEDS ORDERED: IPRATROPIUM/ALBUTEROL 0.5-2.5 MG/3 ML AMPUL NEB PRN (22:18)
[2019-10-06] MEDS ORDERED: METHYLPREDNISOLONE INJ 40 MG/1 ML SDV IV SCH (22:30)
[2019-10-06] MEDS ORDERED: GLIPIZIDE 5 MG TABLET PO ONE (22:45)
[2019-10-06] MEDS ORDERED: CHOLECALCIFEROL (D3) 1,000 UNIT (25 MCG) TABLET PO ONE (22:45)
[2019-10-06] MEDS ORDERED: ALLOPURINOL 300 MG TABLET PO ONE (22:45)
[2019-10-06] MEDS: METHYLPREDNISOLONE INJ 40 MG/1 ML SDV IV SCH (23:00)
[2019-10-06] MEDS ORDERED: AMLODIPINE BESYLATE 10 MG TABLET PO ONE ×2 (23:00)
[2019-10-07] MEDS: INSULIN REG, HUMAN 100 UNIT/ML 3 ML VIAL (PYX) SUBCUT SCH ×5 (00:49→22:00)
[2019-10-07] MEDS: METHYLPREDNISOLONE INJ 40 MG/1 ML SDV IV SCH ×3 (05:58→22:15)
[2019-10-07] MEDS: ENOXAPARIN SODIUM INJ 40 MG/0.4 ML DISP.SYRIN SUBCUT SCH (09:12)
[2019-10-07] MEDS ORDERED: PANTOPRAZOLE SODIUM 40 MG TABLET.DR PO SCH (10:00)
[2019-10-07 14:43] LABS: ABSOLUTE LYMPHOCYTES (AUTO) 0.8 10^3/uL (0.5-4.7); ABSOLUTE MONOCYTES (AUTO) 0.2 10^3/uL (0.1-1.4); ABSOLUTE NEUT (AUTO) 11.3 10^3/uL (1.7-8.2); BASOPHILS % (AUTO) 0.1 % (0-2); HEMATOCRIT 33.1 % (36.0-47.0); HEMOGLOBIN 11.1 g/dL (12.0-15.5); LYMPHOCYTES % (AUTO) 6.2 % (13-45); MEAN CORPUSCULAR HEMOGLOBIN 30.1 pg (27.0-33.4); MEAN CORPUSCULAR HGB CONC 33.5 g/dL (32.0-36.0); MEAN CORPUSCULAR VOLUME 90 fl (80-97); PLATELET COUNT 248 10^3/uL (150-450); RED BLOOD COUNT 3.68 10^6/uL (3.72-5.28); RED CELL DISTRIBUTION WIDTH 15.4 % (11.5-14.0); SEGMENTED NEUTROPHILS % (AUTO) 91.7 % (42-78); TOTAL CELLS COUNTED % (AUTO) 100 %; WHITE BLOOD COUNT 12.3 10^3/uL (4.0-10.5)
[2019-10-07 15:03] LABS: ALBUMIN 4.1 g/dL (3.5-5.0); ALKALINE PHOSPHATASE 77 U/L (38-126); ANION GAP 10 (5-19); ASPARTATE AMINO TRANSFERASE 47 U/L (14-36); BILIRUBIN,DIRECT 0.3 mg/dL (0.0-0.4); BILIRUBIN,TOTAL 0.3 mg/dL (0.2-1.3); BLOOD UREA NITROGEN 30 mg/dL (7-20); CALCIUM 10.8 mg/dL (8.4-10.2); CARBON DIOXIDE 28 mmol/L (22-30); CHLORIDE 98 mmol/L (98-107); GLUCOSE 223 mg/dL (75-110); POTASSIUM 4.1 mmol/L (3.6-5.0); TOTAL PROTEIN 6.9 g/dL (6.3-8.2)
--- NOTE | 2019-10-07 15:53 | RADIOLOGY REPORT (SQ) ---
EXAM DESCRIPTION: CT CHEST WITH COMPLETED DATE/TIME: 10/07/2019 3:21 pm REASON FOR STUDY: copd COMPARISON: 12/18/2013 and 03/18/2012. TECHNIQUE: CT scan of the chest performed using helical scanning technique with dynamic intravenous contrast injection. Images reviewed with lung, soft tissue and bone windows. Reconstructed coronal and sagittal MPR and MIP images reviewed. All images stored on PACS. All CT scanners at this facility use dose modulation, iterative reconstruction, and/or weight based d osing when appropriate to reduce radiation dose to as low as reasonably achievable (ALARA). [facility]: Dose Right [facility]: CareDose [facility]: Dose Right [facility]: Teradose 4D [facility]: Combined Power CONTRAST TYPE AND DOSE: contrast/concentration: Isovue 350.00 mg/ml; Total Contrast Delivered: 80.0 ml; Total Saline Delivered: 43.9 ml RENAL FUNCTION: BUN 22 creatinine 0.98. RADIATION DOSE: CT Rad equipment meets quality standard of care and radiation dose reduction techniq ues were employed. CTDIvol: 6.8 mGy. DLP: 252 mGy-cm. . LIMITATIONS: None. FINDINGS: LUNGS AND PLEURA: Stable 5 mm nodule in the right middle lobe. No infiltrates. No pneumo thorax. No effusions. HILAR AND MEDIASTINAL STRUCTURES: No identified masses or abnormal nodes. HEART AND VASCULAR STRUCTURES: No aneurysm or dissection. No central pulmonary emboli. No pericardi al effusion. HARDWARE: None in the chest. UPPER ABDOMEN: No significant findings. Limited exam. THYROID AND OTHER SOFT TISSUES: No masses. No adenopathy. BONES: No significant finding. OTHER: No other significant finding. IMPRESSION: STABLE 5 MM NODULE IN THE RIGHT MIDDLE LOBE. NO OTHER SIGNIFICANT FINDINGS. TECHNICAL DOCUMENTATION: JOB ID: [id number] Quality ID # [id number]: Final reports with documentation of one or more dose reduction techniques (e.g., Au tomated exposure control, adjustment of the mA and/or kV according to patient size, use of iterative reconstruction technique) 2010 [employer]- All Rights Reserved Reading location - IP/workstation name: [email or web address]
[2019-10-07] MEDS: LEVOFLOXACIN 750 MG/D5W RTU 750 MG/150 ML RTUPB IV SCH (15:56)
--- NOTE | 2019-10-07 16:45 | PDOC H&P ---
History of Present Illness Admission Date/PCP: 10/06/19 18:43 JAMIE ARITA MD History of Present Illness: KARLEE CHRISTENSEN is a 79 year old female, she came to the emergency room for evaluation of respiratory distress in the emergency room when she was seen by the providers she was having difficulty breathing, trouble speaking that was a question of audible stridor she was immediately wheeled to the trauma center for evaluation of respiratory distress. She was immediately started on bronchodilators, DuoNeb, she was given a dose of Solu-Medrol, she was given racemic epinephrine, magnesium, morphine she has no smoking history, she has no history of asthma that she knows of. She was stabilized in the emergency room, it was felt that patient needed to be admitted for further management. There is no history of recent travel, there is a history that family members was sick with bronchitis-like condition. She has a history of chronic cough, felt to be from chronic sinusitis, CT chest with contrast was obtained this was compared with prior CT from 2013 and 2011, it demonstrated stable 5 mm nodule in the right middle lobe no infiltrate no pneumothorax no effusion no central pulmonary emboli no aneurysm. She has a history of type 2 diabetes mellitus well controlled, on review of the lab work she has elevated serum calcium. Past Medical History Cardiac Medical History: Reports: Hyperlipidema, Hypertension Pulmonary Medical History: Reports: Bronchitis, Pneumonia Endocrine Medical History: Reports: Diabetes Mellitus Type 2 GI Medical History: Reports: Gastroesophageal Reflux Disease Musculoskeltal Medical History: Reports: Gout Psychiatric Medical History: Denies: Depression Past Surgical History Past Surgical History: Reports: Cholecystectomy Social History Lives with: Family Smoking Status: Never Smoker Electronic Cigarette use?: No Frequency of Alcohol Use: None Hx Recreational Drug Use: No Drugs: None Hx Prescription Drug Abuse: No Family History Family History: Reviewed & Not Pertinent Parental Family History Reviewed: Yes Children Family History Reviewed: Yes Sibling(s) Family History Reviewed.: Yes Medication/Allergy Home Medications: Allopurinol [Zyloprim 300 mg Tablet] 300 mg PO QPM 06/04/17 Amlodipine Besylate [Norvasc 10 mg Tablet] 10 mg PO QPM 06/04/17 Glipizide [Glucotrol 5 mg Tablet] 5 mg PO QPM 06/04/17 Pantoprazole Sodium [Protonix] 40 mg PO DAILY 06/04/17 Cholecalciferol (Vitamin D3) [Vitamin D3 1000 Unit Tablet] 1,000 unit PO QPM 10/06/19 Pitavastatin Calcium [Livalo] 1 mg PO QPM 10/06/19 Allergies/Adverse Reactions: chocolate flavor Allergy (Mild, Verified 06/04/17 20:53) Hives oxycodone [From Percocet] Allergy (Mild, Verified 06/04/17 20:53) Chest pain tomato Allergy (Mild, Verified 06/04/17 20:53) Hives acetaminophen [From Percocet] Allergy (Verified 06/04/17 20:51) pcn Allergy (Mild, Uncoded 06/04/17 13:38) Review of Systems Constitutional: ABSENT: chills, fever(s), headache(s), weight gain, weight loss Eyes: ABSENT: visual disturbances Ears: ABSENT: hearing changes Cardiovascular: ABSENT: chest pain, dyspnea on exertion, edema, orthropnea, palpitations Respiratory: PRESENT: cough, dyspnea, sputum Gastrointestinal: ABSENT: abdominal pain, constipation, diarrhea, hematemesis, hematochezia, nausea, vomiting Genitourinary: ABSENT: dysuria, hematuria Musculoskeletal: ABSENT: joint swelling Integumentary: ABSENT: rash, wounds Neurological: ABSENT: abnormal gait, abnormal speech, confusion, dizziness, focal weakness, syncope Psychiatric: ABSENT: anxiety, depression, homidical ideation, suicidal ideation Endocrine: ABSENT: cold intolerance, heat intolerance, menstrual abnormalities, polydipsia, polyuria Hematologic/Lymphatic: ABSENT: easy bleeding, easy bruising, lymphadenopathy Physical Exam Vital Signs: Temp Pulse Resp BP Pulse Ox 98.2 F 90 12 137/61 H 95 10/07/19 11:21 10/07/19 11:21 10/07/19 11:21 10/07/19 11:21 10/07/19 11:21 Intake & Output 10/06/19 10/07/19 10/08/19 06:59 06:59 06:59 Intake Total 350 Balance 350 Weight 68.2 kg General appearance: PRESENT: no acute distress, well-developed, well-nourished Head exam: PRESENT: atraumatic, normocephalic Eye exam: PRESENT: conjunctiva pink, EOMI, PERRLA Ear exam: PRESENT: normal external ear exam Mouth exam: PRESENT: moist, tongue midline Neck exam: PRESENT: full ROM Respiratory exam: PRESENT: clear to auscultation katharine Cardiovascular exam: PRESENT: RRR, +S1, +S2 Pulses: PRESENT: normal dorsalis pedis pul, +2 pedal pulses bilateral Vascular exam: PRESENT: normal capillary refill GI/Abdominal exam: PRESENT: normal bowel sounds, soft Rectal exam: PRESENT: deferred Neurological exam: PRESENT: alert, awake, oriented to person, oriented to place, oriented to time, oriented to situation, CN II-XII grossly intact Psychiatric exam: PRESENT: appropriate affect, normal mood Skin exam: PRESENT: dry, intact, warm Results Laboratory Results: 10/07/19 14:28 10/07/19 14:28 10/07/19 10/07/19 14:28 14:28 WBC 12.3 H RBC 3.68 L Hgb 11.1 L Hct 33.1 L MCV 90 MCH 30.1 MCHC 33.5 RDW 15.4 H Plt Count 248 Seg Neutrophils % 91.7 H Sodium 135.8 L Potassium 4.1 Chloride 98 Carbon Dioxide 28 Anion Gap 10 BUN 30 H Creatinine 1.24 Est GFR ( Amer) 50 L Glucose 223 H Calcium 10.8 H Total Bilirubin 0.3 AST 47 H Alkaline Phosphatase 77 Total Protein 6.9 Albumin 4.1 10/06/19 14:19 Troponin I < 0.012 Impressions: Chest X-Ray 10/06/19 00:00 IMPRESSION: NO ACUTE RADIOGRAPHIC FINDING IN THE CHEST. Chest CT 10/07/19 00:00 IMPRESSION: STABLE 5 MM NODULE IN THE RIGHT MIDDLE LOBE. NO OTHER SIGNIFICANT FINDINGS. Assessment & Plan - Diagnosis (1) Acute bronchiolitis with bronchospasm Is this a current diagnosis for this admission?: Yes Plan: The presentation is more consistent with acute bronchiolitis with bronchospasm, the etiology is not clear, it could be viral related or environmental toxin, she is presently on Solu-Medrol, bronchodilators, antibiotic empirically. In the emergency room she was given Solu-Medrol 125 mg, dose reduced to 40 mg, continue bronchodilators. Patient's family is agitated about her condition, they were reassured, will continue same treatment. (2) Hypercalcemia Is this a current diagnosis for this admission?: Yes Plan: Also found was hypercalcemia from the blood work, intact PTH is ordered to differentiate between PTH mediated hypercalcemia or non-PTH mediated hypercalcemia (3) Solitary pulmonary nodule Is this a current diagnosis for this admission?: Yes Plan: She has solitary pulmonary nodule which was present from a CAT scan done back in 03/18/2012 that was about 8 years ago, stable in size unlikely to be malignant lesion most likely consistent with a granuloma (4) T2DM (type 2 diabetes mellitus) Qualifiers: Diabetes mellitus correction insulin use: without correction use Diabetes mellitus complication status: without complication Qualified Code(s): E11.9 - Type 2 diabetes mellitus without complications Is this a current diagnosis for this admission?: Yes
--- NOTE | 2019-10-07 17:30 | EKG REPORT ---
SEVERITY:- ABNORMAL ECG - SINUS TACHYCARDIA VENTRICULAR PREMATURE COMPLEX CONSIDER ANTEROSEPTAL INFARCT : Confirmed by: Lanie Oliver MD 07-Oct-2019 17:30:14
[2019-10-07] MEDS: ALLOPURINOL 300 MG TABLET PO SCH (18:45)
[2019-10-07] MEDS: ATORVASTATIN CALCIUM 10 MG TABLET PO SCH (18:46)
[2019-10-07] MEDS: CHOLECALCIFEROL (D3) 1,000 UNIT (25 MCG) TABLET PO SCH (18:46)
[2019-10-07] MEDS: AMLODIPINE BESYLATE 10 MG TABLET PO SCH (18:46)
[2019-10-07] MEDS: GLIPIZIDE 5 MG TABLET PO SCH (18:46)
[2019-10-08] MEDS: PANTOPRAZOLE SODIUM 40 MG TABLET.DR PO SCH (06:53)
[2019-10-08] MEDS: METHYLPREDNISOLONE INJ 40 MG/1 ML SDV IV SCH ×3 (06:53→22:40)
[2019-10-08] MEDS: INSULIN REG, HUMAN 100 UNIT/ML 3 ML VIAL (PYX) SUBCUT SCH ×4 (08:00→22:40)
[2019-10-08] MEDS: LEVOFLOXACIN 750 MG/D5W RTU 750 MG/150 ML RTUPB IV SCH (09:52)
[2019-10-08] MEDS: NORMAL SALINE 1000 ML 1,000 ML IV PRN ×2 (09:52→21:17)
[2019-10-08] MEDS: ENOXAPARIN SODIUM INJ 40 MG/0.4 ML DISP.SYRIN SUBCUT SCH (09:53)
--- NOTE | 2019-10-08 10:39 | RADIOLOGY REPORT (SQ) ---
EXAM DESCRIPTION: SOFT TISSUE NECK COMPLETED DATE/TIME: 10/08/2019 10:28 am REASON FOR STUDY: neck swelling COMPARISON: None. NUMBER OF VIEWS: Two views. TECHNIQUE: AP and lateral radiographic image of the soft tissues of the neck. LIMITATIONS: None. FINDINGS: EPIGLOTTIS: Normal. Contour normal. Aryepiglottic folds normal. PREVERTEBRAL SOFT TISSUES: Normal. No soft tissue swelling. SUBGLOTTIC AREA: Normal. No narrowing. RETROPHARYNGEAL SPACE: Normal. No soft tissue masses. BONES: No significant findings. LUNG APICES: Normal. OTHER: No radiopaque foreign body. No other significant finding. IMPRESSION: NEGATIVE STUDY OF THE SOFT TISSUES OF THE NECK. TECHNICAL DOCUMENTATION: JOB ID: [id number] 2010 [employer]- All Rights Reserved Reading location - IP/workstation name: [email or web address]
[2019-10-08 11:18] LABS: HEMATOCRIT 33.3 % (36.0-47.0); HEMOGLOBIN 10.9 g/dL (12.0-15.5); MEAN CORPUSCULAR HEMOGLOBIN 29.4 pg (27.0-33.4); MEAN CORPUSCULAR HGB CONC 32.7 g/dL (32.0-36.0); MEAN CORPUSCULAR VOLUME 90 fl (80-97); PLATELET COUNT 255 10^3/uL (150-450); RED BLOOD COUNT 3.71 10^6/uL (3.72-5.28); WHITE BLOOD COUNT 15.7 10^3/uL (4.0-10.5)
[2019-10-08 11:36] LABS: ABSOLUTE LYMPHOCYTES# (MANUAL) 0.9 10^3/uL (0.5-4.7); BASOPHILS % (MANUAL) 0 % (0-2); EOSINOPHILS % (MANUAL) 0 % (0-6); LYMPHOCYTES % (MANUAL) 6 % (13-45); MONOCYTES % (MANUAL) 0 % (3-13); SEGMENTED NEUTROPHILS % (MAN) 94 % (42-78); TOTAL CELLS COUNTED 100
[2019-10-08 11:38] LABS: ANISOCYTOSIS SLIGHT; OVALOCYTES SLIGHT; PLATELET COMMENT ADEQUATE; POIKILOCYTOSIS SLIGHT
[2019-10-08 12:31] LABS: ALBUMIN 3.9 g/dL (3.5-5.0); ALKALINE PHOSPHATASE 66 U/L (38-126); ANION GAP 9 (5-19); ASPARTATE AMINO TRANSFERASE 44 U/L (14-36); BILIRUBIN,DIRECT 0.1 mg/dL (0.0-0.4); BILIRUBIN,TOTAL 0.3 mg/dL (0.2-1.3); BLOOD UREA NITROGEN 33 mg/dL (7-20); CALCIUM 10.6 mg/dL (8.4-10.2); CARBON DIOXIDE 24 mmol/L (22-30); CHLORIDE 101 mmol/L (98-107); GLUCOSE 275 mg/dL (75-110); POTASSIUM 4.4 mmol/L (3.6-5.0); TOTAL PROTEIN 6.3 g/dL (6.3-8.2)
--- NOTE | 2019-10-08 15:25 | PDOC PROGRESS REPORT ---
Subjective Progress Note for:: 10/08/19 Subjective:: She has primary hyperparathyroidism with hypercalcemia, she is scheduled for nuclear medicine parathyroid imaging Reason For Visit: BRONCHITIS WITH BRONCHOSPASM Physical Exam Vital Signs: Temp Pulse Resp BP Pulse Ox 98.3 F 89 18 159/65 H 94 10/08/19 11:46 10/08/19 11:46 10/08/19 11:46 10/08/19 11:46 10/08/19 11:46 Intake & Output 10/07/19 10/08/19 10/09/19 06:59 06:59 06:59 Intake Total 350 150 Balance 350 150 Weight 68.2 kg 68.7 kg General appearance: PRESENT: no acute distress Eye exam: PRESENT: PERRLA Respiratory exam: PRESENT: clear to auscultation katharine Cardiovascular exam: PRESENT: +S1, +S2 Neurological exam: PRESENT: alert Results Laboratory Results: 10/08/19 10:55 10/08/19 10:55 10/07/19 10/08/19 10/08/19 17:48 10:55 10:55 WBC 15.7 H RBC 3.71 L Hgb 10.9 L Hct 33.3 L MCV 90 MCH 29.4 MCHC 32.7 RDW 16.0 H Plt Count 255 Seg Neutrophils % Not Reportable Sodium 133.9 L Potassium 4.4 Chloride 101 Carbon Dioxide 24 Anion Gap 9 BUN 33 H Creatinine 1.18 Est GFR ( Amer) 53 L Glucose 275 H Calcium 10.6 H Total Bilirubin 0.3 AST 44 H Alkaline Phosphatase 66 Total Protein 6.3 Albumin 3.9 PTH Intact 223.1 H 10/06/19 14:19 Troponin I < 0.012 Impressions: Chest X-Ray 10/06/19 00:00 IMPRESSION: NO ACUTE RADIOGRAPHIC FINDING IN THE CHEST. Chest CT 10/07/19 00:00 IMPRESSION: STABLE 5 MM NODULE IN THE RIGHT MIDDLE LOBE. NO OTHER SIGNIFICANT FINDINGS. Soft Tissue Neck X-Ray 10/08/19 00:00 IMPRESSION: NEGATIVE STUDY OF THE SOFT TISSUES OF THE NECK. 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
[2019-10-08] MEDS: GLIPIZIDE 5 MG TABLET PO SCH (17:16)
[2019-10-08] MEDS: ATORVASTATIN CALCIUM 10 MG TABLET PO SCH (17:16)
[2019-10-08] MEDS: AMLODIPINE BESYLATE 10 MG TABLET PO SCH (17:16)
[2019-10-08] MEDS: CHOLECALCIFEROL (D3) 1,000 UNIT (25 MCG) TABLET PO SCH (17:17)
[2019-10-08] MEDS: ALLOPURINOL 300 MG TABLET PO SCH (17:17)
[2019-10-09] MEDS: METHYLPREDNISOLONE INJ 40 MG/1 ML SDV IV SCH (06:15)
[2019-10-09] MEDS: PANTOPRAZOLE SODIUM 40 MG TABLET.DR PO SCH (06:15)
[2019-10-09] MEDS: INSULIN REG, HUMAN 100 UNIT/ML 3 ML VIAL (PYX) SUBCUT SCH ×4 (08:11→22:01)
[2019-10-09] MEDS: NORMAL SALINE 1000 ML 1,000 ML IV PRN (08:49)
[2019-10-09] MEDS: ENOXAPARIN SODIUM INJ 40 MG/0.4 ML DISP.SYRIN SUBCUT SCH (10:00)
[2019-10-09] MEDS: LEVOFLOXACIN 750 MG/D5W RTU 750 MG/150 ML RTUPB IV SCH (10:05)
[2019-10-09 10:27] LABS: HEMATOCRIT 32.5 % (36.0-47.0); HEMOGLOBIN 10.7 g/dL (12.0-15.5); MEAN CORPUSCULAR HEMOGLOBIN 29.5 pg (27.0-33.4); MEAN CORPUSCULAR HGB CONC 32.9 g/dL (32.0-36.0); MEAN CORPUSCULAR VOLUME 90 fl (80-97); PLATELET COUNT 249 10^3/uL (150-450); RED BLOOD COUNT 3.62 10^6/uL (3.72-5.28); RED CELL DISTRIBUTION WIDTH 15.5 % (11.5-14.0); WHITE BLOOD COUNT 13.5 10^3/uL (4.0-10.5)
[2019-10-09 10:38] LABS: ALBUMIN 3.4 g/dL (3.5-5.0); ALKALINE PHOSPHATASE 56 U/L (38-126); ANION GAP 7 (5-19); ASPARTATE AMINO TRANSFERASE 34 U/L (14-36); BILIRUBIN,TOTAL 0.3 mg/dL (0.2-1.3); BLOOD UREA NITROGEN 29 mg/dL (7-20); CALCIUM 9.8 mg/dL (8.4-10.2); CARBON DIOXIDE 26 mmol/L (22-30); CHLORIDE 104 mmol/L (98-107); GLUCOSE 208 mg/dL (75-110); POTASSIUM 3.7 mmol/L (3.6-5.0); TOTAL PROTEIN 5.8 g/dL (6.3-8.2)
[2019-10-09 11:00] LABS: ABSOLUTE LYMPHOCYTES# (MANUAL) 0.7 10^3/uL (0.5-4.7); ABSOLUTE MONOCYTES # (MANUAL) 0.3 10^3/uL (0.1-1.4); BASOPHILS % (MANUAL) 0 % (0-2); EOSINOPHILS % (MANUAL) 0 % (0-6); LYMPHOCYTES % (MANUAL) 5 % (13-45); MONOCYTES % (MANUAL) 2 % (3-13); SEGMENTED NEUTROPHILS % (MAN) 93 % (42-78); TOTAL CELLS COUNTED 100
[2019-10-09 11:01] LABS: ANISOCYTOSIS SLIGHT; OVALOCYTES SLIGHT; PLATELET COMMENT ADEQUATE
[2019-10-09] MEDS: GLIPIZIDE 5 MG TABLET PO SCH (17:28)
[2019-10-09] MEDS: AMLODIPINE BESYLATE 10 MG TABLET PO SCH (18:39)
[2019-10-09] MEDS: CHOLECALCIFEROL (D3) 1,000 UNIT (25 MCG) TABLET PO SCH (18:39)
[2019-10-09] MEDS: ALLOPURINOL 300 MG TABLET PO SCH (18:39)
[2019-10-10] MEDS: NORMAL SALINE 1000 ML 1,000 ML IV PRN (00:07)
[2019-10-10] MEDS: PANTOPRAZOLE SODIUM 40 MG TABLET.DR PO SCH (07:57)
[2019-10-10] MEDS: INSULIN REG, HUMAN 100 UNIT/ML 3 ML VIAL (PYX) SUBCUT SCH ×3 (08:01→16:05)
--- NOTE | 2019-10-10 08:37 | RADIOLOGY REPORT (SQ) ---
EXAM DESCRIPTION: NM PARATHYROID IMAGING COMPLETED DATE/TIME: 10/09/2019 2:51 pm REASON FOR STUDY: PRIMARY HYPERPARATHYROIDISM D50.8 OTHER IRON DEFICIENCY ANEMIAS COMPARISON: None. RADIONUCLIDE AND DOSE: 22.0 millicuries Tc-99m Sestamibi. The route of agent administration: Intravenous ADDITIONAL DRUGS AND DOSES: None. TECHNIQUE: Early and delayed images of the neck acquired following radionuclide administration. LIMITATIONS: None. FINDINGS: Thyroid: Normal size. Homogeneous activity. Normal washout. No focal lesions. Parathyroid: Faint activity in the lower pole of the right lobe and upper pole of the left lobe. Other: No other significant findings. IMPRESSION: FAINT RESIDUAL ACTIVITY IN THE THYROID. COULD BE DUE TO PARATHYROID ADENOMA. TECHNICAL DOCUMENTATION: JOB ID: [id number] [employer]- All Rights Reserved Reading location - IP/workstation name: [email or web address]
[2019-10-10] MEDS: ENOXAPARIN SODIUM INJ 40 MG/0.4 ML DISP.SYRIN SUBCUT SCH (09:33)
[2019-10-10] MEDS ORDERED: LEVOFLOXACIN 500 MG TABLET PO SCH (10:00)
[2019-10-10 17:34] VITALS: BP 152/65
--- NOTE | 2019-10-10 19:36 | PDOC DISCHARGE SUMMARY ---
Impression - Admit/DC Date/PCP Admission Date/Primary Care Provider: 10/10/19 15:42 JAMIE ARITA MD Discharge Date: 10/10/19 - Discharge Diagnosis (1) Acute bronchiolitis with bronchospasm Is this a current diagnosis for this admission?: Yes (2) Hypercalcemia Is this a current diagnosis for this admission?: Yes (3) Solitary pulmonary nodule Is this a current diagnosis for this admission?: Yes (4) T2DM (type 2 diabetes mellitus) Is this a current diagnosis for this admission?: Yes (5) Primary hyperparathyroidism Is this a current diagnosis for this admission?: Yes - Additional Information Discharge Diet: As Tolerated Discharge Activity: Activity As Tolerated, Balance Activity w/Rest Referrals: JAMIE ARITA MD [Primary Care Provider] - (In one week. Preferably in afternoon after 1 pm. ) CLARK HESS MD [ACTIVE STAFF] - (In one week for evaluation of hyperparathyroidism. Preferably in the afternoon after 1.) Prescriptions: Budesonide/Formoterol Fumarate [Symbicort Hfa 160-4.5 Mcg Inhaler 6 gm] 1 puff IH Q12 #1 inhaler Home Medications: Allopurinol [Zyloprim 300 mg Tablet] 300 mg PO QPM 06/04/17 Amlodipine Besylate [Norvasc 10 mg Tablet] 10 mg PO QPM 06/04/17 Glipizide [Glucotrol 5 mg Tablet] 5 mg PO QPM 06/04/17 Pantoprazole Sodium [Protonix] 40 mg PO DAILY 06/04/17 Cholecalciferol (Vitamin D3) [Vitamin D3 1000 Unit Tablet] 1,000 unit PO QPM 10/06/19 Pitavastatin Calcium [Livalo] 1 mg PO QPM 10/06/19 Budesonide/Formoterol Fumarate [Symbicort Hfa 160-4.5 Mcg Inhaler 6 gm] 1 puff IH Q12 #1 inhaler 10/10/19 History of Present Illiness History of Present Illness: KARLEE CHRISTENSEN is a 79 year old female, she came to the emergency room for evaluation of respiratory distress in the emergency room when she was seen by the providers she was having difficulty breathing, trouble speaking that was a question of audible stridor she was immediately wheeled to the trauma center for evaluation of respiratory distress. She was immediately started on bronchodilators, DuoNeb, she was given a dose of Solu-Medrol, she was given racemic epinephrine, magnesium, morphine she has no smoking history, she has no history of asthma that she knows of. She was stabilized in the emergency room, it was felt that patient needed to be admitted for further management. There is no history of recent travel, there is a history that family members was sick with bronchitis-like condition. She has a history of chronic cough, felt to be from chronic sinusitis, CT chest with contrast was obtained this was compared with prior CT from 2013 and 2011, it demonstrated stable 5 mm nodule in the right middle lobe no infiltrate no pneumothorax no effusion no central pulmonary emboli no aneurysm. She has a history of type 2 diabetes mellitus well controlled, on review of the lab work she has elevated serum calcium. Hospital Course Hospital Course: Patient was admitted for the management of acute bronchospasm associated with bronchiolitis, she was treated with intravenous Solu-Medrol, bronchodilators, there was incidental finding of hypercalcemia, the serum intact PTH was more than 100 consistent with primary hyperparathyroidism.Nuclear medicine parathyroid gland imaging was obtained it was suggestive of parathyroid adenoma.CT chest was obtained for evaluation of the respiratory symptoms, it demonstrated incidental finding of a pulmonary nodule, a subcentimeter nodule that was present from 8 years ago there was no change in size or character of the nodule suggesting that this is probably a benign process probably granuloma Physical Exam Vital Signs: Temp Pulse Resp BP Pulse Ox 98 F 72 18 152/65 H 94 10/10/19 18:10 10/10/19 18:10 10/10/19 18:10 10/10/19 18:10 10/10/19 18:10 Intake & Output 10/09/19 10/10/19 10/11/19 06:59 06:59 06:59 Intake Total 3122 6316 1555 Balance 3122 6316 1555 Weight 72.1 kg 72.1 kg General appearance: PRESENT: no acute distress Eye exam: PRESENT: PERRLA Respiratory exam: PRESENT: clear to auscultation katharine Cardiovascular exam: PRESENT: +S1, +S2 GI/Abdominal exam: PRESENT: soft Neurological exam: PRESENT: alert Results Laboratory Results: WBC 13.5 10^3/uL (4.0-10.5) H 10/09/19 09:53 RBC 3.62 10^6/uL (3.72-5.28) L 10/09/19 09:53 Hgb 10.7 g/dL (12.0-15.5) L 10/09/19 09:53 Hct 32.5 % (36.0-47.0) L 10/09/19 09:53 MCV 90 fl (80-97) 10/09/19 09:53 MCH 29.5 pg (27.0-33.4) 10/09/19 09:53 MCHC 32.9 g/dL (32.0-36.0) 10/09/19 09:53 RDW 15.5 % (11.5-14.0) H 10/09/19 09:53 Plt Count 249 10^3/uL (150-450) 10/09/19 09:53 Lymph % (Auto) Not Reportable 10/09/19 09:53 Crawford % (Auto) Not Reportable 10/09/19 09:53 Eos % (Auto) Not Reportable 10/09/19 09:53 Baso % (Auto) Not Reportable 10/09/19 09:53 Absolute Neuts (auto) Not Reportable 10/09/19 09:53 Absolute Lymphs (auto) Not Reportable 10/09/19 09:53 Absolute Monos (auto) Not Reportable 10/09/19 09:53 Absolute Eos (auto) Not Reportable 10/09/19 09:53 Absolute Basos (auto) Not Reportable 10/09/19 09:53 Total Counted 100 10/09/19 09:53 Seg Neutrophils % Not Reportable 10/09/19 09:53 Seg Neuts % (Manual) 93 % (42-78) H 10/09/19 09:53 Lymphocytes % (Manual) 5 % (13-45) L 10/09/19 09:53 Monocytes % (Manual) 2 % (3-13) L 10/09/19 09:53 Eosinophils % (Manual) 0 % (0-6) 10/09/19 09:53 Basophils % (Manual) 0 % (0-2) 10/09/19 09:53 Abs Neuts (Manual) 12.6 10^3/uL (1.7-8.2) H 10/09/19 09:53 Abs Lymphs (Manual) 0.7 10^3/uL (0.5-4.7) 10/09/19 09:53 Abs Monocytes (Manual) 0.3 10^3/uL (0.1-1.4) 10/09/19 09:53 Absolute Eos (Manual) 0.0 10^3/uL (0.0-0.6) 10/09/19 09:53 Abs Basophils (Manual) 0.0 10^3/uL (0.0-0.2) 10/09/19 09:53 Platelet Comment ADEQUATE 10/09/19 09:53 Poikilocytosis SLIGHT 10/08/19 10:55 Anisocytosis SLIGHT 10/09/19 09:53 Ovalocytes SLIGHT 10/09/19 09:53 VBG pH 7.36 (7.30-7.42) 10/06/19 14:19 VBG pCO2 47.1 mmHg (35-63) 10/06/19 14:19 VBG HCO3 26.2 mmol/L (20-32) 10/06/19 14:19 VBG Base Excess 0.3 mmol/L 10/06/19 14:19 Sodium 136.7 mmol/L (137-145) L 10/09/19 09:53 Potassium 3.7 mmol/L (3.6-5.0) 10/09/19 09:53 Chloride 104 mmol/L (98-107) 10/09/19 09:53 Carbon Dioxide 26 mmol/L (22-30) 10/09/19 09:53 Anion Gap 7 (5-19) 10/09/19 09:53 BUN 29 mg/dL (7-20) H 10/09/19 09:53 Creatinine 1.05 mg/dL (0.52-1.25) 10/09/19 09:53 Est GFR ( Amer) > 60 (>60) 10/09/19 09:53 Est GFR (MDRD) Non-Af 51 (>60) L 10/09/19 09:53 Glucose 208 mg/dL (75-110) H 10/09/19 09:53 POC Glucose 86 mg/dL (70-110) 10/10/19 15:44 Lactic Acid 2.3 mmol/L (0.7-2.1) H 10/06/19 14:19 Calcium 9.8 mg/dL (8.4-10.2) 10/09/19 09:53 Total Bilirubin 0.3 mg/dL (0.2-1.3) 10/09/19 09:53 Direct Bilirubin 0.0 mg/dL (0.0-0.4) 10/09/19 09:53 Neonat Total Bilirubin Not Reportable 10/09/19 09:53 Neonat Direct Bilirubin Not Reportable 10/09/19 09:53 Neonat Indirect Bili Not Reportable 10/09/19 09:53 AST 34 U/L (14-36) 10/09/19 09:53 ALT 33 U/L (<35) 10/09/19 09:53 Alkaline Phosphatase 56 U/L (38-126) 10/09/19 09:53 Troponin I < 0.012 ng/mL 10/06/19 14:19 Total Protein 5.8 g/dL (6.3-8.2) L 10/09/19 09:53 Albumin 3.4 g/dL (3.5-5.0) L 10/09/19 09:53 PTH Intact 223.1 pg/mL (10.0-65.0) H 10/07/19 17:48 Influenza A (Rapid) NEGATIVE (NEGATIVE) 10/06/19 16:50 Influenza B (Rapid) NEGATIVE (NEGATIVE) 10/06/19 16:50 10/06/19 14:19 Troponin I < 0.012 Impressions: Chest X-Ray 10/06/19 00:00 IMPRESSION: NO ACUTE RADIOGRAPHIC FINDING IN THE CHEST. Chest CT 10/07/19 00:00 IMPRESSION: STABLE 5 MM NODULE IN THE RIGHT MIDDLE LOBE. NO OTHER SIGNIFICANT FINDINGS. Soft Tissue Neck X-Ray 10/08/19 00:00 IMPRESSION: NEGATIVE STUDY OF THE SOFT TISSUES OF THE NECK. Parathyroid Scan Nuclear Medicine 10/09/19 00:00 IMPRESSION: FAINT RESIDUAL ACTIVITY IN THE THYROID. COULD BE DUE TO PARATHYROID ADENOMA. Stroke Is this a Stroke Patient?: No Acute Heart Failure - Is this a Heart Failure Patient?: No
== END 2019-10-10 18:45 | disposition home or self-care (01) | DRG 203 ==
LOC: ER 14:05 → EH 18:43 → INTOOBSV 18:43 → 4S 21:53 → OBSVTOIN 10-10 15:42
PROVIDERS: ADMIT Internal Medicine; ATTEND Internal Medicine
DX: J21.9 Acute bronchiolitis, unspecified (principal); R91.1 Solitary pulmonary nodule; E11.9 Type 2 diabetes mellitus without complications; E21.3 Hyperparathyroidism, unspecified; E87.5 Hyperkalemia; I10 Essential (primary) hypertension; K21.9 Gastro-esophageal reflux disease without esophagitis; M10.9 Gout, unspecified; Z90.49 Acquired absence of other specified parts of digestive tract; Z79.84 Long term (current) use of oral hypoglycemic drugs; Z88.8 Allergy status to other drugs, medicaments and biological substances; Z91.02 Food additives allergy status; Z88.5 Allergy status to narcotic agent; Z88.0 Allergy status to penicillin
CPT/HCPCS: 36415; 70360; 71045; 71260; 78070; 80053; 82803; 82962; 83605; 83970; 84484; 85025; 87040; 87070; 87205; 87804; 93005; 93010; 94640; 96365; 96366; 96367; 96375; 99291; 99292; A9500; G0378; J1956; J2270; J2405; J2920; J2930; J3475; J3490; J7030; J7620; Q9969

== ENCOUNTER → 2019-11-30 | Outpatient (CLI) | payer MEDICARE, OTHER | LOC: OD 12:53 | PROVIDERS: ATTEND Surgery | DX: E04.1 Nontoxic single thyroid nodule (principal) | CPT/HCPCS: 36415; 82310; 83970 ==

== ENCOUNTER 2020-01-25 09:11 | Day surgery (SDC) | payer MEDICARE, OTHER ==
[~2020-01-25 09:11] MED LIST: CHONDR SU A NA/HYALUR INTRAOC KIT (SURGICARE) ONE; DORZOLAMIDE HCL 2%/TIMOLOL MALEAT 0.5% OPH SOLN 10 ML OS PRN; EPINEPHRINE INJ/PF 1 MG/1 ML AMPULE ONE; KETOROLAC TROMETHAMINE 0.45% 4 DROP/0.4 ML DROPERETTE OS PRN; LIDOCAINE 1%/PHENYLEPHRINE 1.5% 1 ML VIAL ONE
[2020-01-25] MEDS ORDERED: ONDANSETRON HCL INJ/PF 4 MG/2 ML SDV ONE (09:29)
[2020-01-25] MEDS ORDERED: FENTANYL CITRATE INJ/PF 100 MCG/2 ML AMPUL ONE (09:30)
[2020-01-25] MEDS ORDERED: MIDAZOLAM 2 MG/2 ML INJ ONE (09:30)
[2020-01-25] MEDS: TROPICAMIDE 1% OPH SOLN 15 ML OS PRN ×3 (10:17→10:30)
[2020-01-25] MEDS: CYCLOPENTOLATE 0.2%/PHENYLEPHRINE 1% OPH SOLN 2 ML OS PRN ×3 (10:17→10:30)
[2020-01-25] MEDS: TETRACAINE HCL 0.5% OPH SOLN 4 ML OS PRN ×3 (10:17→10:41)
[2020-01-25] MEDS: BESIFLOXACIN HCL 0.6% OPH SUSP 5 ML BOTTLE OS PRN ×3 (10:17→11:14)
--- NOTE | 2020-01-25 13:27 | Operative Report ---
Operative Report-[facility] Operative Report: DATE OF SURGERY: 01/25/2020 PREOPERATIVE DIAGNOSIS: Cataracts, left eye POSTOPERATIVE DIAGNOSIS: Cataract, left eye OPERATION: Cataract extraction with insertion of an toric IOL of the left eye. Intraocular Lens Model: [23.0 sn6at5 rotated to 32 degrees] Reason for surgery was difficulty seeing road signs SURGEON: German Bee MD ANESTHESIA: Topical PROCEDURE: After obtaining appropriate consent, the patient's left eye was prepped and draped in a sterile fashion as well as the surgeon in the sterile manner and cataract surgery was started. First a paracentesis blade was used to make a side-port incision. Viscoelastic was used to inflate the anterior chamber. Next a 2.4 mm incision was made with a 2.4 mm blade, clear corneal temporarily. A continuous capsulorrhexis was made using a cystotome and Utrata forceps. Following this hydrodissection was carried out to make the lens fully loose and mobile and it was rotated 90 degrees. Following this, a divide and conquer technique was used to phacoemulsify the lens. The remaining cortex was removed with an irrigation/aspiration. Provisc was instilled into the capsular bag to inflate the bag.The intraocular lens was placed. The remaining viscoelastic material was removed with irrigation/aspiration. Following this, the incision was found to be watertight. Besivance and Cosopt was instilled into the eye and a protective shield was placed over the eye. The patient was returned to the postoperative recovery in a stable condition.
== END 2020-01-25 11:46 | disposition home or self-care (01) ==
LOC: SC 09:11
PROVIDERS: ATTEND Internal Medicine
DX: H25.13 Age-related nuclear cataract, bilateral (principal); H04.123 Dry eye syndrome of bilateral lacrimal glands; H40.013 Open angle with borderline findings, low risk, bilateral; E11.9 Type 2 diabetes mellitus without complications; I10 Essential (primary) hypertension; K21.9 Gastro-esophageal reflux disease without esophagitis; Z88.0 Allergy status to penicillin; Z88.6 Allergy status to analgesic agent; Z79.84 Long term (current) use of oral hypoglycemic drugs; Z79.899 Other long term (current) drug therapy
CPT/HCPCS: 82962; 66984; J2250; J3490 ×2; A9270; J0171; J2405; J3010

== ENCOUNTER 2020-03-07 09:56 | Day surgery (SDC) | payer MEDICARE, OTHER ==
[~2020-03-07 09:56] MED LIST changes: -CHONDR SU A NA/HYALUR INTRAOC KIT (SURGICARE) ONE; -DORZOLAMIDE HCL 2%/TIMOLOL MALEAT 0.5% OPH SOLN 10 ML OS PRN; -EPINEPHRINE INJ/PF 1 MG/1 ML AMPULE ONE; +KETOROLAC TROMETHAMINE 0.45% 4 DROP/0.4 ML DROPERETTE OD PRN; -KETOROLAC TROMETHAMINE 0.45% 4 DROP/0.4 ML DROPERETTE OS PRN; -LIDOCAINE 1%/PHENYLEPHRINE 1.5% 1 ML VIAL ONE
[2020-03-07] MEDS ORDERED: ONDANSETRON HCL INJ/PF 4 MG/2 ML SDV ONE (10:00)
[2020-03-07] MEDS ORDERED: MIDAZOLAM 2 MG/2 ML INJ ONE (10:00)
[2020-03-07] MEDS ORDERED: FENTANYL CITRATE INJ/PF 100 MCG/2 ML AMPUL ONE (10:01)
[2020-03-07] MEDS: TROPICAMIDE 1% OPH SOLN 15 ML OD PRN ×3 (10:25→10:45)
[2020-03-07] MEDS: TETRACAINE HCL 0.5% OPH SOLN 4 ML OD PRN ×3 (10:25→11:06)
[2020-03-07] MEDS: BESIFLOXACIN HCL 0.6% OPH SUSP 5 ML BOTTLE OD PRN ×4 (10:25→11:34)
[2020-03-07] MEDS: CYCLOPENTOLATE 0.2%/PHENYLEPHRINE 1% OPH SOLN 2 ML OD PRN ×3 (10:25→10:45)
[2020-03-07] MEDS: CHONDR SU A NA/HYALUR INTRAOC KIT (SURGICARE) ONE ×2 (11:15→11:21)
[2020-03-07] MEDS: EPINEPHRINE INJ/PF 1 MG/1 ML AMPULE ONE ×2 (11:15→11:21)
[2020-03-07] MEDS: LIDOCAINE 1%/PHENYLEPHRINE 1.5% 1 ML VIAL ONE ×2 (11:15→11:21)
[2020-03-07] MEDS: DORZOLAMIDE HCL 2%/TIMOLOL MALEAT 0.5% OPH SOLN 10 ML OD PRN ×2 (11:34)
--- NOTE | 2020-03-08 07:39 | Operative Report ---
Operative Report-[facility] Operative Report: DATE OF SURGERY: 03/07/2020 PREOPERATIVE DIAGNOSIS: Cataract, right eye POSTOPERATIVE DIAGNOSIS: Cataract, right eye OPERATION: Cataract extraction with insertion of an toric IOL of the right eye. Intraocular Lens Model: []23.0 sn6at3 rotated to 150 degrees Patient underwent surgery for difficulty with glare at night making it difficulty to drive SURGEON: German Bee MD ANESTHESIA: Topical PROCEDURE: After obtaining appropriate consent, the patient's right eye was prepped and draped in a sterile fashion as well as the surgeon in the sterile manner and cataract surgery was started. First a paracentesis blade was used to make a side-port incision. Viscoelastic was used to inflate the anterior chamber. Next a 2.4 mm incision was made with a 2.4 mm blade, clear corneal temporarily. A continuous capsulorrhexis was made using a cystotome and Utrata forceps. Following this hydrodissection was carried out to make the pierce fully loose and mobile and it was rotated. Following this, a divide and conquer technique was used to phacoemulsify the pierce. The remaining cortex was removed with an irrigation/aspiration. Provisc was instilled into the capsular bag to inflate the bag. The intraocular lens was placed. The remaining viscoelastic material was removed with irrigation/aspiration. Following this, the incision was found to be watertight. Besivance and Cosopt was instilled into the eye and a protective shield was placed over the eye. The patient was reurned to the postoperative recovery in a stable condition.
== END 2020-03-07 12:07 | disposition home or self-care (01) ==
LOC: SC 09:56
PROVIDERS: ATTEND Internal Medicine
DX: H25.11 Age-related nuclear cataract, right eye (principal); Z96.1 Presence of intraocular lens; E11.9 Type 2 diabetes mellitus without complications; I10 Essential (primary) hypertension; K21.9 Gastro-esophageal reflux disease without esophagitis; Z88.8 Allergy status to other drugs, medicaments and biological substances; Z88.0 Allergy status to penicillin; Z79.899 Other long term (current) drug therapy; Z79.84 Long term (current) use of oral hypoglycemic drugs; M10.9 Gout, unspecified
CPT/HCPCS: 66984; 82962; J2250; J3490 ×2; A9270; J0171; J2405; 142; J3010

== ENCOUNTER → 2020-05-14 | Outpatient (CLI) | payer MEDICARE, OTHER ==
--- NOTE | 2020-05-14 16:38 | WOMENS IMAGING REPORT ---
EXAM DESCRIPTION: 3D SCREENING MAMMO BILAT IMAGES COMPLETED DATE/TIME: 05/14/2020 3:47 pm REASON FOR STUDY: Z12.31 ENCOUNTER FOR SCREENING MAMMOGRAM FOR MALIGNANT NEOPLASM OF BREAST Z12.31 ENCNTR SCREEN MAMMOGRAM FOR MALIGNANT NEOPLASM OF AAMIR COMPARISON: 05/10/2019 and 05/31/2018. EXAM PARAMETERS: Standard craniocaudal and mediolateral oblique views of each breast recorded using digital acquisition and breast tomosynthesis. Read with the assistance of CAD. .[facility] - [employer] Version 9.2 LIMITATIONS: None. FINDINGS: Findings present which are benign by mammographic criteria. No suspicious masses, calcific ations or architectural distortion. Pertinent benign findings: Stable small mass in the left breast with benign calcifications. Benign mammographic findings may include one or more of the following: Smooth masses, popcorn/rim/coa rse calcifications, asymmetries, post-procedure changes, and lesions with long-standing stability. IMPRESSION: BENIGN MAMMOGRAPHIC FINDINGS. BIRADS 2 BREAST DENSITY: a. The breasts are almost entirely fatty. BIRAD: ASSESSMENT: 2 BENIGN FINDING(S) RECOMMENDATION: ROUTINE SCREENING COMMENT: The patient has been notified of the results by letter per MQSA requirements. Additional no tification policies are in place for contacting patient with suspicious or incomplete findings. Quality ID #[id number]: The [employer] recommends an annual screening mammogram for women aged 40 years or over. This facility utilizes a reminder system to ensure that all patients receive reminder letters, and/or direct phone calls for appointments. This includes reminders for routine scr eening mammograms, diagnostic mammograms, or other Breast Imaging Interventions when appropriate. Th is patient will be placed in the appropriate reminder system. TECHNICAL DOCUMENTATION: FINDING NUMBER: (1) ASSESSMENT: (1) JOB ID: [id number] 2010 [employer]- All Rights Reserved Reading location - IP/workstation name: [email or web address]
== END ==
LOC: WI 15:27
PROVIDERS: ATTEND Internal Medicine
DX: Z12.31 Encounter for screening mammogram for malignant neoplasm of breast (principal)
CPT/HCPCS: 77063; 77067